=== PATIENT | male | born 1935 | race Two or more races ===

== ENCOUNTER 2016-12-17 13:15 | Emergency (ER) | payer MEDICARE, BC ==
[~2016-12-17] VITALS: Ht 175.3 cm; Wt 84.8 kg
[2016-12-17] MEDS ORDERED: IV NORMAL SALINE 500 ML BAG IV ONE (13:45)
[2016-12-17 14:14] LABS: BASOPHILS # (AUTO) 0.1 K/uL (0.0-8.0); BASOPHILS % (AUTO) 0.8 % (0.0-2.0); EOSINOPHILS # (AUTO) 0.8 K/uL (0.0-0.7); EOSINOPHILS % (AUTO) 8.1 % (0.0-7.0); HEMATOCRIT 43.1 % (40-50); HEMOGLOBIN 14.2 G/DL (14.0-18.0); LYMPHOCYTES # (AUTO) 1.6 K/UL (0.8-4.8); LYMPHOCYTES % (AUTO) 16.8 % (20.5-51.5); MEAN CORPUSCULAR HEMOGLOBIN 30.8 UUG (27.0-31.0); MEAN CORPUSCULAR HGB CONC 33 g/dL (32.0-37.0); MEAN CORPUSCULAR VOLUME 93.5 FL (82.0-92.0); MONOCYTES # (AUTO) 0.5 K/UL (0.1-1.30); MONOCYTES % (AUTO) 5.8 % (0.0-11.0); NEUTROPHILS # (AUTO) 6.4 K/UL (1.8-8.9); NEUTROPHILS % (AUTO) 68.5 % (38.5-71.5); PLATELET COUNT (AUTO) 207 K/UL (150-450); RED BLOOD CELL COUNT(AUTO) 4.61 MIL/UL (4.7-6.1); WHITE BLOOD COUNT (AUTO) 9.4 K/UL (4.0-11.2)
[2016-12-17 14:23] LABS: *BILIRUBIN,URIN NEGATIVE (NEGATIVE); *BLOOD, URINE 1+ (NEGATIVE); *CLARITY,URINE SLIGHTLY CLOUDY (CLEAR); *COLOR,URINE YELLOW (YELLOW); *KETONES,URINE NEGATIVE (NEGATIVE); *PROTEIN,URINE NEGATIVE (NEGATIVE); *UROBILINOGEN,URINE 0.2 E.U./dl (NORMAL); LEUKOCYTE ESTERASE ,URINE NEGATIVE (NEGATIVE); NITRITE, URINE NEGATIVE (NEGATIVE); PH,URINE 5.5 (5.0-8.0); UGLUCOSE NEGATIVE (NEGATIVE)
[2016-12-17 14:25] LABS: CARBON DIOXIDE 30 mmol/L (21-32); CHLORIDE 103 mmol/L (98-107); CREATININE 0.9 mg/dL (0.6-1.3); GLUCOSE 101 mg/dL (74-106); POTASSIUM 4.1 mmol/L (3.5-5.1); UREA NITROGEN, BLOOD 17 mg/dL (7-18)
[2016-12-17 14:41] LABS: ALANINE AMINOTRANSFERASE 26 U/L (16-63); ALKALINE PHOSPHATASE 105 U/L (50-136); ASPARTATE AMINOTRANSFERASE 20 U/L (15-37); BILIRUBIN,DIRECT 0.1 mg/dL (0.0-0.2); BILIRUBIN,TOTAL 0.7 mg/dL (0.2-1.0); LIPASE 97 U/L (73-393); TOTAL PROTEIN, SERUM 7.7 g/dL (6.4-8.2)
[2016-12-17 14:56] LABS: BACTERIA,URINE NONE SEEN /HPF (NONE SEEN); SQUAMOUS EPITHELIAL CELL,UR NONE SEEN /HPF (NONE SEEN); WBC,URINE 0-3 /HPF (0-3)
[2016-12-17] MEDS ORDERED: METRONIDAZOLE 500 MG TABLET PO ONE (15:45)
[2016-12-17] MEDS ORDERED: LEVOFLOXACIN 750 MG TABLET PO ONE (15:45)
--- NOTE | 2016-12-17 16:01 | NUR ---
IV removed. Catheter intact and site benign. Pressure and 4x4 gauze applied to site. No bleeding noted. Patient discharged to home in stable conditon. Written and verbal after care instructions given. Patient verbalizes understanding of instructions. Stressed follow up with pmd or return to ER for worsening s/s.
[2016-12-17 16:03] VITALS: BP 133/74
[2016-12-17] MEDS ORDERED: METRONIDAZOLE 500 MG TABLET ONE (16:10)
[2016-12-17] MEDS ORDERED: LEVOFLOXACIN 750 MG TABLET ONE (16:10)
== END 2016-12-17 16:04 | disposition home or self-care (01) ==
LOC: ER 13:19
DX: K57.32 Diverticulitis of large intestine without perforation or abscess without bleeding (principal); N20.0 Calculus of kidney; N40.0 Benign prostatic hyperplasia without lower urinary tract symptoms
CPT/HCPCS: 36415; 74176; 80048; 80076; 81001; 83690; 84484; 85025; 85730; 87086; 93005; 96360; 99285; A4663; J7030; 70030-TC

== ENCOUNTER 2017-03-25 21:08 | Inpatient (IN) | payer MEDICARE, BC ==
[~2017-03-25] VITALS: Ht 175.3 cm; Wt 83.5 kg
[2017-03-25] MEDS ORDERED: ONDANSETRON 4 MG/2 ML VIAL ONE (21:41)
[2017-03-25] MEDS ORDERED: ACETAMINOPHEN ES 500 MG TABLET ONE (21:41)
[2017-03-25] MEDS ORDERED: HYDROMORPHONE 2 MG/1 ML DISP.SYRIN ONE (21:43)
[2017-03-25] MEDS ORDERED: ONDANSETRON 4 MG/2 ML VIAL IV ONE (21:45)
[2017-03-25] MEDS ORDERED: HYDROMORPHONE 1 MG/1 ML DISP.SYRIN IV ONE (21:45)
[2017-03-25] MEDS ORDERED: ACETAMINOPHEN ES 500 MG TABLET PO ONE (21:45)
[2017-03-25 22:14] LABS: BASOPHILS # (AUTO) 0.1 K/uL (0.0-8.0); BASOPHILS % (AUTO) 0.5 % (0.0-2.0); EOSINOPHILS # (AUTO) 0.3 K/uL (0.0-0.7); EOSINOPHILS % (AUTO) 2.2 % (0.0-7.0); HEMATOCRIT 40.7 % (36.7-47.1); HEMOGLOBIN 13.8 g/dL (12.5-16.3); LYMPHOCYTES # (AUTO) 0.7 K/uL (20.0-40.0); LYMPHOCYTES % (AUTO) 5.7 % (20.5-51.5); MEAN CORPUSCULAR HEMOGLOBIN 31.4 uug (23.8-33.4); MEAN CORPUSCULAR HGB CONC 34 g/dL (32.5-36.3); MEAN CORPUSCULAR VOLUME 92.7 fL (73.0-96.2); MONOCYTES # (AUTO) 0.8 K/uL (2.0-10.0); MONOCYTES % (AUTO) 6.5 % (0.0-11.0); NEUTROPHILS # (AUTO) 10.4 K/uL (1.8-8.9); NEUTROPHILS % (AUTO) 85.1 % (38.5-71.5); PLATELET COUNT (AUTO) 183 K/uL (152-348); RED BLOOD CELL COUNT(AUTO) 4.39 MIL/uL (4.06-5.63); WHITE BLOOD COUNT (AUTO) 12.2 K/uL (3.6-10.2)
[2017-03-25 22:20] LABS: CARBON DIOXIDE 27 mmol/L (21-32); CHLORIDE 96 mmol/L (98-107); CREATININE 1.1 mg/dL (0.6-1.3); GLUCOSE 124 mg/dL (74-106); POTASSIUM 4.7 mmol/L (3.5-5.1); UREA NITROGEN, BLOOD 31 mg/dL (7-18)
[2017-03-25 22:32] LABS: ALANINE AMINOTRANSFERASE 29 U/L (16-63); ALKALINE PHOSPHATASE 113 U/L (50-136); ASPARTATE AMINOTRANSFERASE 25 U/L (15-37); TOTAL PROTEIN, SERUM 6.9 g/dL (6.4-8.2)
[2017-03-25] MEDS ORDERED: CEFTRIAXONE 1 G VIAL ONE (22:55)
[2017-03-25] MEDS ORDERED: VANCOMYCIN 1000 MG VIAL ONE (22:57)
[2017-03-25] MEDS ORDERED: CEFTRIAXONE 1 G in IV DEXTROSE 5% 50 ML IV ONE (23:00)
[2017-03-25] MEDS ORDERED: VANCOMYCIN IV 1,000 MG in IV DEXTROSE 5% 250 ML IV ONE (23:00)
[2017-03-25] MEDS ORDERED: OXYC5TAB3 PO (23:35)
[2017-03-25] MEDS ORDERED: METO25TA6 PO (23:35)
[2017-03-25] MEDS ORDERED: ACET-2154 PO (23:35)
[2017-03-25] MEDS ORDERED: TRAM50TA2 PO (23:35)
[2017-03-25] MEDS ORDERED: DOCU100C36 PO (23:35)
[2017-03-25] MEDS ORDERED: OXYC5CAP18 PO (23:35)
[2017-03-25] MEDS ORDERED: LIDO30AD10 TD (23:35)
[2017-03-25] MEDS ORDERED: POLY255P2 PO (23:35)
[2017-03-25] MEDS ORDERED: BISA5TAB10 PO (23:35)
[2017-03-25 23:44] LABS: *BLOOD, URINE Trace-lysed (NEGATIVE); *CLARITY,URINE CLEAR (CLEAR); *COLOR,URINE AMBER (YELLOW); *KETONES,URINE 1+ (NEGATIVE); *PROTEIN,URINE 1+ (NEGATIVE); LEUKOCYTE ESTERASE ,URINE NEGATIVE (NEGATIVE); NITRITE, URINE NEGATIVE (NEGATIVE); UGLUCOSE NEGATIVE (NEGATIVE)
[2017-03-25] MEDS ORDERED: MAGNESIUM HYDROXIDE 30 ML LIQUID UDC PO PRN (23:45)
[2017-03-25] MEDS ORDERED: HYDROCODONE/APAP 5-325MG TABLET PO PRN (23:45)
[2017-03-25] MEDS ORDERED: Z GUARD REMEDY PASTE 57 GM TUBE TOP PRN (23:45)
[2017-03-25] MEDS ORDERED: ONDANSETRON 4 MG/2 ML VIAL IV PRN (23:45)
[2017-03-25] MEDS ORDERED: ACETAMINOPHEN 325 MG TABLET PO PRN (23:45)
[2017-03-25] MEDS ORDERED: IV NS 1000 ML 1,000 ML IV PRN (23:45)
[2017-03-26 00:25] LABS: *BILIRUBIN,URIN 2+ (NEGATIVE)
[2017-03-26 00:26] LABS: WBC,URINE 0-3 /HPF (0-3)
[2017-03-26 00:27] LABS: BACTERIA,URINE NONE SEEN /HPF (NONE SEEN); MUCUS,URINE FEW /LPF (0-FEW); SQUAMOUS EPITHELIAL CELL,UR FEW /HPF (NONE SEEN)
[2017-03-26 01:04] VITALS: BP 116/62
[2017-03-26] MEDS ORDERED: TRAMADOL HCL 50 MG TABLET PO PRN (01:30)
[2017-03-26] MEDS: OXYCODONE HCL 5 MG TABLET PO PRN ×2 (02:31→07:50)
[2017-03-26] MEDS ORDERED: MORPHINE SULFATE 4 MG/1 ML DISP.SYRIN IV ONE (03:45)
[2017-03-26 06:37] LABS: BASOPHILS # (AUTO) 0.1 K/uL (0.0-8.0); BASOPHILS % (AUTO) 0.5 % (0.0-2.0); EOSINOPHILS # (AUTO) 0.3 K/uL (0.0-0.7); EOSINOPHILS % (AUTO) 2.8 % (0.0-7.0); HEMOGLOBIN 13.5 g/dL (12.5-16.3); LYMPHOCYTES # (AUTO) 0.9 K/uL (20.0-40.0); LYMPHOCYTES % (AUTO) 7.2 % (20.5-51.5); MEAN CORPUSCULAR HEMOGLOBIN 31.6 uug (23.8-33.4); MEAN CORPUSCULAR HGB CONC 34 g/dL (32.5-36.3); MONOCYTES # (AUTO) 0.9 K/uL (2.0-10.0); MONOCYTES % (AUTO) 7.2 % (0.0-11.0); NEUTROPHILS # (AUTO) 9.9 K/uL (1.8-8.9); NEUTROPHILS % (AUTO) 82.3 % (38.5-71.5); PLATELET COUNT (AUTO) 174 K/uL (152-348); RED BLOOD CELL COUNT(AUTO) 4.26 MIL/uL (4.06-5.63)
[2017-03-26 06:56] LABS: CARBON DIOXIDE 29 mmol/L (21-32); CHLORIDE 97 mmol/L (98-107); CHOLESTEROL 138 mg/dL (<200); GLUCOSE 109 mg/dL (74-106); HDL CHOLESTEROL 55 mg/dL (40-60); MAGNESIUM 2.1 mg/dL (1.8-2.4); PHOSPHOROUS 3.9 mg/dL (2.5-4.9); POTASSIUM 4.5 mmol/L (3.5-5.1); TRIGLYCERIDES 69 MG/DL (30-150); UREA NITROGEN, BLOOD 29 mg/dL (7-18)
[2017-03-26 07:02] VITALS: BP 132/61
[2017-03-26] MEDS ORDERED: HYDROMORPHONE 1 MG/1 ML DISP.SYRIN IV PRN (09:15)
[2017-03-26] MEDS ORDERED: HYDROMORPHONE 2 MG/1 ML DISP.SYRIN IV PRN (09:30)
[2017-03-26] MEDS ORDERED: LEVOFLOXACIN 750MG/D5W 750 MG in PREMIXED 1 EACH IV SCH (11:00)
[2017-03-26 11:30] VITALS: BP 124/62
[2017-03-26] MEDS ORDERED: LIDOCAINE 5% PATCH TD SCH (11:30)
[2017-03-26] MEDS ORDERED: BISACODYL 5 MG TABLET.DR PO PRN (11:30)
[2017-03-26] MEDS ORDERED: OXYCODONE HCL 5 MG TABLET PO PRN (11:30)
[2017-03-26] MEDS ORDERED: METOPROLOL TARTRATE 25 MG TABLET PO SCH (11:30)
[2017-03-26] MEDS ORDERED: VANC1.2511 IV (14:19)
[2017-03-26] MEDS ORDERED: LEVO750T21 IV (14:19)
[2017-03-26 15:48] VITALS: BP 134/65
[2017-03-26] MEDS ORDERED: VANCOMYCIN IV 1,250 MG in IV DEXTROSE 5% 500 ML IV SCH (17:00)
[2017-03-26] MEDS ORDERED: DOCUSATE SODIUM 100 MG CAPSULE PO SCH (17:00)
== END 2017-03-26 17:40 | disposition short-term general hospital (02) | DRG 871 ==
LOC: ER 21:11 → TELE 03-26 00:26
PROVIDERS: ADMIT Nurse Practitioner Acute Care; ATTEND Nurse Practitioner Acute Care
DX: A41.9 Sepsis, unspecified organism (principal); J69.0 Pneumonitis due to inhalation of food and vomit; E44.0 Moderate protein-calorie malnutrition; R06.03 Acute respiratory distress; E22.2 Syndrome of inappropriate secretion of antidiuretic hormone; J18.9 Pneumonia, unspecified organism; C34.91 Malignant neoplasm of unspecified part of right bronchus or lung; Y95 Nosocomial condition; T85.848A Pain due to other internal prosthetic devices, implants and grafts, initial encounter; Z90.2 Acquired absence of lung [part of]; I10 Essential (primary) hypertension; Z91.09 Other allergy status, other than to drugs and biological substances; R09.02 Hypoxemia
CPT/HCPCS: 36415; 70030-TC; 71045; 83605; 83735; 84100; 85025; 85730; 87040; 87070; 87400; 93005; A4663; A9150; J0696; J1170; J1956; J2270; J2405; J3370; J7030; J7060

== ENCOUNTER 2017-06-28 21:01 | Inpatient (IN) | payer MEDICARE, BC ==
[~2017-06-28] VITALS: Ht 182.9 cm; Wt 79.4 kg
[~2017-06-28 21:01] MED LIST: ACET-2154 PO; BISA5TAB10 PO; DOCU100C36 PO; LEVO750T21 IV; LIDO30AD10 TD; METO25TA6 PO; OXYC5CAP18 PO; OXYC5TAB3 PO; POLY255P2 PO; TRAM50TA2 PO; VANC1.2511 IV
--- NOTE | 2017-06-28 22:37 | NUR ---
DR BIBI EAST MD AT BEDSIDE FOR MSE.
[2017-06-28 22:58] LABS: BASOPHILS % (AUTO) 0.3 % (0.0-2.0); EOSINOPHILS % (AUTO) 0.1 % (0.0-7.0); HEMATOCRIT 30.8 % (36.7-47.1); LYMPHOCYTES # (AUTO) 0.4 K/uL (20.0-40.0); LYMPHOCYTES % (AUTO) 13.1 % (20.5-51.5); MEAN CORPUSCULAR HEMOGLOBIN 33.3 uug (23.8-33.4); MEAN CORPUSCULAR HGB CONC 36 g/dL (32.5-36.3); MEAN CORPUSCULAR VOLUME 93.6 fL (73.0-96.2); MONOCYTES # (AUTO) 0.1 K/uL (2.0-10.0); NEUTROPHILS # (AUTO) 2.3 K/uL (1.8-8.9); NEUTROPHILS % (AUTO) 81.5 % (38.5-71.5); PLATELET COUNT (AUTO) 291 K/uL (152-348); RED BLOOD CELL COUNT(AUTO) 3.29 MIL/uL (4.06-5.63); WHITE BLOOD COUNT (AUTO) 2.8 K/uL (3.6-10.2)
[2017-06-28] MEDS ORDERED: HYDROMORPHONE 1 MG/1 ML DISP.SYRIN IV ONE (23:00)
[2017-06-28] MEDS ORDERED: ONDANSETRON IV *ER 4 MG/2 ML VIAL IV ONE (23:00)
[2017-06-28] MEDS ORDERED: ONDANSETRON 4 MG/2 ML VIAL ONE (23:04)
[2017-06-28] MEDS ORDERED: HYDROMORPHONE 2 MG/1 ML DISP.SYRIN ONE (23:04)
[2017-06-28 23:14] LABS: CARBON DIOXIDE 27 mmol/L (21-32); CHLORIDE 103 mmol/L (98-107); CREATININE 1.2 mg/dL (0.6-1.3); GLUCOSE 163 mg/dL (74-106); POTASSIUM 4.2 mmol/L (3.5-5.1); UREA NITROGEN, BLOOD 17 mg/dL (7-18)
[2017-06-28 23:18] LABS: ALANINE AMINOTRANSFERASE 37 U/L (16-63); ALKALINE PHOSPHATASE 89 U/L (50-136); ASPARTATE AMINOTRANSFERASE 32 U/L (15-37); BILIRUBIN,DIRECT 0.1 mg/dL (0.0-0.2); BILIRUBIN,TOTAL 0.5 mg/dL (0.2-1.0); LIPASE 78 U/L (73-393); TOTAL PROTEIN, SERUM 6.9 g/dL (6.4-8.2)
[2017-06-28 23:23] LABS: *BILIRUBIN,URIN NEGATIVE (NEGATIVE); *BLOOD, URINE 2+ (NEGATIVE); *CLARITY,URINE SLIGHTLY CLOUDY (CLEAR); *COLOR,URINE YELLOW (YELLOW); *KETONES,URINE 2+ (NEGATIVE); *PROTEIN,URINE TRACE (NEGATIVE); *UROBILINOGEN,URINE 0.2 E.U./dl (NORMAL); LEUKOCYTE ESTERASE ,URINE NEGATIVE (NEGATIVE); NITRITE, URINE NEGATIVE (NEGATIVE); UGLUCOSE NEGATIVE (NEGATIVE)
--- NOTE | 2017-06-28 23:27 | NUR ---
PT TAKEN TO CT. NO ACUTE DISTRESS NOTED.
[2017-06-28 23:50] LABS: BACTERIA,URINE NONE SEEN /HPF (NONE SEEN); WBC,URINE 0-3 /HPF (0-3)
[2017-06-28 23:51] LABS: MUCUS,URINE FEW /LPF (0-FEW); SQUAMOUS EPITHELIAL CELL,UR FEW /HPF (NONE SEEN)
--- NOTE | 2017-06-28 23:54 | NUR ---
PT BACK IN ROOM FROM CT. NO ACUTE EVENTS. PT DENIES PAIN, N/V AT THIS TIME.
[2017-06-29] MEDS ORDERED: DEXAMETHASONE SOD PHOSPHATE 4 MG INJ IV ONE (00:45)
[2017-06-29] MEDS ORDERED: ONDANSETRON IV *ER 4 MG/2 ML VIAL IV ONE (00:45)
[2017-06-29] MEDS ORDERED: HYDROMORPHONE 1 MG/1 ML DISP.SYRIN IV ONE (00:45)
[2017-06-29] MEDS ORDERED: HYDROMORPHONE 2 MG/1 ML DISP.SYRIN ONE (00:53)
[2017-06-29] MEDS ORDERED: DEXAMETHASONE SOD PHOSPHATE 10 MG INJ ONE (00:53)
[2017-06-29] MEDS ORDERED: ONDANSETRON 4 MG/2 ML VIAL ONE (00:53)
--- NOTE | 2017-06-29 01:05 | NUR ---
DR BIBI EAST MD AT BEDSIDE FOR FOLLOW UP.
[2017-06-29] MEDS ORDERED: ONDA4TAB10 PO (01:28)
[2017-06-29] MEDS ORDERED: FOLI1TAB16 PO (01:28)
[2017-06-29] MEDS ORDERED: DEXA4TAB PO (01:28)
[2017-06-29] MEDS ORDERED: HYDROCODONE/APAP 5-325MG TABLET PO PRN (01:30)
[2017-06-29] MEDS ORDERED: BISACODYL 5 MG TABLET.DR PO PRN (01:30)
[2017-06-29] MEDS ORDERED: MAGNESIUM HYDROXIDE 30 ML LIQUID UDC PO PRN (01:30)
[2017-06-29] MEDS ORDERED: ONDANSETRON 4 MG/2 ML VIAL IV PRN (01:30)
[2017-06-29] MEDS ORDERED: Z GUARD REMEDY PASTE 57 GM TUBE TOP PRN (01:30)
[2017-06-29] MEDS ORDERED: ACETAMINOPHEN 325 MG TABLET PO PRN (01:30)
--- NOTE | 2017-06-29 01:46 | NUR ---
PTS 'S CONTACT INFO: [phone]
[2017-06-29] MEDS: TAMSULOSIN HCL 0.4 MG CAP.SR.24H PO SCH ×3 (02:00→16:54)
--- NOTE | 2017-06-29 02:27 | NUR ---
REPORT GIVEN TO WILLIAM NIEVES.
--- NOTE | 2017-06-29 02:57 | NUR ---
Pt. admitted to [facility], under care of Dr. BEAVERS Belongs List completed
[2017-06-29] MEDS: IV NS 1000 ML 1,000 ML IV PRN ×2 (04:45→23:35)
[2017-06-29] MEDS: HYDROMORPHONE 2 MG/1 ML DISP.SYRIN IV PRN ×3 (08:12→13:55)
[2017-06-29] MEDS: DOCUSATE SODIUM 100 MG CAPSULE PO SCH ×2 (09:00→16:53)
[2017-06-29] MEDS: LIDOCAINE 5% PATCH TD SCH ×2 (09:00→21:00)
[2017-06-29] MEDS: METOPROLOL TARTRATE 25 MG TABLET PO SCH ×2 (09:00→17:00)
--- NOTE | 2017-06-29 10:05 | NUR ---
Patient refused AM meds states that those are not the current meds. He states that he has a bottle of meds that he gave the nurse griselda night. I called the pharmacy and there are no medication sent there for the patient
[2017-06-29 11:04] VITALS: BP 113/61
--- NOTE | 2017-06-29 14:43 | NUR ---
Patient denies pain at this time. Spoke with "Kaley" on phone, Patient is pain free, able to void and tolerating PO food and fluids.
[2017-06-29 16:09] VITALS: BP 109/61
[2017-06-29] MEDS: DEXAMETHASONE 4 MG TABLET PO SCH (16:55)
--- NOTE | 2017-06-29 18:51 | NUR ---
IV changed site to left hand #22g. saline lock, patient tolerated well
[2017-06-29 19:00] VITALS: BP 102/51
--- NOTE | 2017-06-29 20:00 | NUR ---
Received pt. in bed resting, with Kaley @ the bedside. Pt. calm, alert, awake, oriented x 3-4. Pt. in room air, no s/s of dyspnea, denies any pain, HOB up, on fall and aspiration precaution. Provided pt. and privacy. Will provide pt. nursing care and will maintain pt. safety and will assist pt. with the activities of daily living. Call-light within reach and bed locked in low position, and personal belongings near the pt.'s side.
[2017-06-29] MEDS ORDERED: HYDROMORPHONE 2 MG/1 ML DISP.SYRIN IV PRN (23:15)
[2017-06-30 04:00] VITALS: BP 119/68
[2017-06-30 06:51] LABS: CARBON DIOXIDE 28 mmol/L (21-32); CHLORIDE 106 mmol/L (98-107); CREATININE 0.9 mg/dL (0.6-1.3); GLUCOSE 138 mg/dL (74-106); MAGNESIUM 1.9 mg/dL (1.8-2.4); PHOSPHOROUS 3.3 mg/dL (2.5-4.9); UREA NITROGEN, BLOOD 22 mg/dL (7-18)
[2017-06-30 07:12] LABS: BASOPHILS % (AUTO) 0.2 % (0.0-2.0); HEMATOCRIT 29.2 % (36.7-47.1); HEMOGLOBIN 10.4 g/dL (12.5-16.3); LYMPHOCYTES # (AUTO) 0.7 K/uL (20.0-40.0); MEAN CORPUSCULAR HEMOGLOBIN 33.5 uug (23.8-33.4); MEAN CORPUSCULAR HGB CONC 36 g/dL (32.5-36.3); MEAN CORPUSCULAR VOLUME 93.9 fL (73.0-96.2); MONOCYTES # (AUTO) 0.7 K/uL (2.0-10.0); MONOCYTES % (AUTO) 14.2 % (0.0-11.0); NEUTROPHILS # (AUTO) 3.8 K/uL (1.8-8.9); NEUTROPHILS % (AUTO) 72.6 % (38.5-71.5); PLATELET COUNT (AUTO) 270 K/uL (152-348); RED BLOOD CELL COUNT(AUTO) 3.11 MIL/uL (4.06-5.63)
[2017-06-30 07:24] LABS: WHITE BLOOD COUNT (AUTO) 5.2 K/uL (3.6-10.2)
[2017-06-30] MEDS: DEXAMETHASONE 4 MG TABLET PO SCH (08:14)
[2017-06-30] MEDS: TAMSULOSIN HCL 0.4 MG CAP.SR.24H PO SCH (08:14)
[2017-06-30] MEDS ORDERED: FOLIC ACID 1 MG TABLET PO SCH (09:00)
[2017-06-30 11:30] VITALS: BP 118/64
[2017-06-30 15:18] VITALS: BP 116/62
[2017-06-30] MEDS ORDERED: TAMS-3 PO (15:43)
--- NOTE | 2017-06-30 16:39 | NUR ---
D/C ORDERS RECEIVED NOTED AND CARRIED OUT,D/C BATSHEVA PER MD ORDERS,D/C INSTRUCTION GIVEN TO THE PT,PT SAID HE WILL CALL DR ABDI OFFICE TO MAKE HIS OPP IN ONE WEEK,AND HE HAVE ALREADY OPP WITH [facility] FOR HIS CHEMO .PT LEFT THE FACILITY VIA PRIVATE CAR IN STABLE CONDITION WITH HIS ,
== END 2017-06-30 16:40 | disposition home or self-care (01) | DRG 693 ==
LOC: ER 21:04 → MED 06-29 02:20
PROVIDERS: ADMIT Internal Medicine; ATTEND Internal Medicine
DX: N13.2 Hydronephrosis with renal and ureteral calculous obstruction (principal); D61.810 Antineoplastic chemotherapy induced pancytopenia; C34.91 Malignant neoplasm of unspecified part of right bronchus or lung; K80.20 Calculus of gallbladder without cholecystitis without obstruction; N40.0 Benign prostatic hyperplasia without lower urinary tract symptoms; K57.30 Diverticulosis of large intestine without perforation or abscess without bleeding; Z79.899 Other long term (current) drug therapy; Z90.2 Acquired absence of lung [part of]; I10 Essential (primary) hypertension
CPT/HCPCS: 36415; 70030-TC; 71045; 76770; 83690; 83735; 84100; 85025; 93005; A4663; J1100; J1170; J2405; J7030; J8540